=== PATIENT | female | born 1955 | race Two or more races ===

== ENCOUNTER 2020-03-06 11:54 | Emergency (ER) | payer OTHER ==
[~2020-03-06] VITALS: Ht 165.1 cm; Wt 147.9 kg
== END 2020-03-06 14:45 | disposition home or self-care (01) ==
LOC: ER 11:54
DX: R60.0 Localized edema (principal); E87.79 Other fluid overload; Z03.818 Encounter for observation for suspected exposure to other biological agents ruled out; R53.81 Other malaise; R06.02 Shortness of breath